=== PATIENT | female | born 2000 | race Caucasian/White ===

== ENCOUNTER 2021-06-19 19:21 | Emergency (ER) | payer OTHER ==
[~2021-06-19 19:21] MED LIST: FLEXERIL5 MG PO; MACROBID100 MG PO; MEDROL 4MG DOSEP4 MG PO
[2021-06-19 21:56] LABS: BASOPHIL 0.2 % (0-2); EOSINOPHIL 1.6 % (0-5); HCT 45.8 % (37.0-47.0); HGB 14.7 g/dl (12.5-16.0); LYMPHOCYTE 42.5 % (15-48); MCH 27.2 pg (25.0-31.0); MCHC 32.1 g/dL (32.0-36.0); MCV 84.7 fL (78.0-100.0); MONOCYTE 10.5 % (0-12); MPV 12.5 fL (6.0-9.5); NEUTROPHIL 44.8 % (41-80); NRBC 0; PLT 166 K/uL (150-400); RBC 5.41 M/uL (4.20-5.40); RDW 13.1 % (11.5-14.0); WBC 5.1 K/uL (4.0-10.5)
[2021-06-19 22:07] LABS: BUN/CREAT RATIO (CALC) 15.9 RATIO; CREATININE 0.82 mg/dL (0.51-0.95); POTASSIUM 3.9 mmol/L (3.5-5.1)
[2021-06-19] MEDS ORDERED: MEDROL 4MG DOSEP4 MG PO (22:22)
[2021-06-19] MEDS ORDERED: VENTOLIN HFA IN18 GM INH (22:27)
== END 2021-06-20 00:14 | disposition home or self-care (01) ==
LOC: FER 19:21
PROVIDERS: Nurse Practitioner Family
DX: U07.1 COVID-19 (principal); Z88.8 Allergy status to other drugs, medicaments and biological substances
CPT/HCPCS: 36415; 71045; 80048; 85025; J1100; J2405; J7030